=== PATIENT | female | born 2000 | race African-American/Black ===

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

== ENCOUNTER → 2025-08-21 | Emergency (ER) | payer SELFPAY | LOC: ERS 14:57 | DX: Z53.20 Procedure and treatment not carried out because of patient's decision for unspecified reasons (principal) ==